=== PATIENT | female | born 1990 | race Caucasian/White ===

== ENCOUNTER 2021-11-27 08:22 | Outpatient (CLI) | payer BC | END 2021-11-27 08:23 | disposition home or self-care (01) | LOC: SCSMRI 08:22 | PROVIDERS: ATTEND Anesthesiology Pain Medicine | DX: M51.16 Intervertebral disc disorders with radiculopathy, lumbar region (principal); Q05.7 Lumbar spina bifida without hydrocephalus | CPT/HCPCS: 72148 ==